=== PATIENT | female | born 1980 | race Two or more races ===

== ENCOUNTER 2024-11-10 11:36 | Emergency (ER) | payer MEDICAID, SELFPAY ==
[2024-11-10 12:18] VITALS: BP 149/93; PULSE 80; RESP 18; TEMP 36.7; O2SAT 96; BMI 37.0
--- NOTE | 2024-11-10 12:25 | XR_ITS ---
Examination: PA lateral chest 2 views TECHNIQUE: Upright PA lateral chest 2 views Exam date and time: November 10, 2024 at 12:51 PM INDICATIONS: Chest pain beginning 3 days ago. FINDINGS: Normal heart size. Lungs are clear. Osseous structures are intact. IMPRESSION: No active disease
--- NOTE | 2024-11-10 12:25 | EKG_ITS ---
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
--- NOTE | 2024-11-10 12:25 | PD.EDRME ---
Rapid Medical Screening Exam RME Arrival date/time: 11/10/24 11:36 44-year-old female presents the emergency department with complaints of shortness of breath/chest pain for 1 week. I have greeted and performed a focused initial assessment of this patient. Initial appropriate labs ordered at this time. A comprehensive ED assessment and evaluation of the patient and analysis of all test and completion of medical decision making process will be conducted by additional ED provider. Chief Complaint: Shortness of Breath/Dyspnea Time Seen by Provider: 11/10/24 11:59 Vital signs: Vital Signs Temperature 98.1 F 11/10/24 12:18 Pulse Rate 80 11/10/24 12:18 Respiratory Rate 18 11/10/24 12:18 Blood Pressure 149/93 H 11/10/24 12:18 Pulse Oximetry (%) 96 11/10/24 12:18 Oxygen Delivery Method Room Air 11/10/24 12:18
[2024-11-10 13:04] LABS: Basophils # (Auto) 0.1 Thou/mm3 (0.0-0.2); Basophils % (Auto) 1 % (0-2.5); Eosinophils # (Auto) 0.4 Thou/mm3 (0.0-0.5); Eosinophils % (Auto) 3 % (0-10); Hematocrit 39.3 % (36.0-46.0); Hemoglobin 12.3 g/dL (12.0-16.0); Immature Granulocytes % (Auto) 0 % (0-0); Immature Granulocytes Auto 0.02 Thou/mm3 (0.00-0.00); Lymphocytes # (Auto) 3.6 Thou/mm3 (1.0-4.8); Lymphocytes % (Auto) 31 % (10-50); Mean Corpuscular HGB Conc 31.3 g/dl (31.0-37.0); Mean Corpuscular Hemoglobin 25.8 pg (25.0-35.0); Mean Corpuscular Volume 83 fL (80-100); Monocytes # (Auto) 0.7 Thou/mm3 (0.0-0.8); Monocytes % (Auto) 6 % (0-12); Neutrophils % (Auto) 59 % (37-80); Nucleated Red Blood Cell % 0 /100 WBC (0); Platelet Count 337 Thou/mm3 (140-440); RDW Standard Deviation 46.3 fL (36.4-46.3); Red Blood Count 4.76 Miln/mm3 (4.00-5.20); White Blood Count 11.8 Thou/mm3 (3.6-11.0)
[2024-11-10 13:17] LABS: INR 0.9 (0.9-1.3); Prothrombin Time 10.3 Seconds (9.0-12.2)
[2024-11-10 13:21] LABS: B-Type Natriuretic Peptide 50 pg/mL (0-100)
[2024-11-10] MEDS: predniSONE 20 MG TABLET 60 MG PO (13:30)
[2024-11-10] MEDS: ALBUTEROL/IPRATROPIUM (Duoneb) RT SOL 3 ML NEBU INH (13:36)
[2024-11-10 13:38] VITALS: PULSE 92; RESP 20; O2SAT 100
[2024-11-10 14:12] LABS: Alanine Aminotransferase 32 U/L (10-49); Albumin, Serum 3.9 gm/dL (3.5-5.0); Albumin/Globulin Ratio 1.3 (1.2-2.2); Alkaline Phosphatase 107 U/L (46-116); Anion Gap 9 (7-16); Aspartate Amino Transferase 27 U/L (0-34); BUN/Creatinine Ratio 19 Ratio (12-20); Bilirubin,Total 0.4 mg/dL (0.3-1.2); Blood Urea Nitrogen 13 mg/dL (9-23); Calcium 9.3 mg/dL (8.3-10.6); Calcium (Corrected) 9.4 mg/dL (8.5-10.1); Carbon Dioxide 26.9 mMol/L (20.0-31.0); Chloride 104 mMol/L (98-107); Creatinine (Component) 0.7 mg/dL (0.6-1.3); Estimated Creatinine Clearance 112.3 mL/min (>60); Globulin 2.9 gm/dL (2.3-3.5); Glucose 94 mg/dL (74-106); Lipase 46 U/L (12-53); Osmolality,Calculated 279 (275-295); Potassium 3.7 mMol/L (3.4-5.1); Sodium 140 mMol/L (136-145); Total Protein 6.8 gm/dL (5.7-8.2); Troponin I < 0.002 ng/mL (0.0-0.045); eGFR > 60 See Note
--- NOTE | 2024-11-10 15:29 | PD.EDSOB ---
ED SOB =RME/HPI General Chief Complaint: Shortness of Breath/Dyspnea Stated Complaint: SEEN PCP X 3 DAYS AGO FOR RESPIRATORY INFECTION Time Seen by Provider: 11/10/24 11:59 Source: patient Arrival date/time: 11/10/24 11:36 44-year-old female presents to the emergency department with complaints of shortness of breath, cough recently diagnosed with URI. Patient reports she was on a [employer] mild wheezing. Mode of arrival: ambulatory Limitations: no limitations RME / HPI RME / HPI Narrative: 11/10/24 11:36 44-year-old female presents the emergency department with complaints of shortness of breath/chest pain for 1 week. I have greeted and performed a focused initial assessment of this patient. Initial appropriate labs ordered at this time. A comprehensive ED assessment and evaluation of the patient and analysis of all test and completion of medical decision making process will be conducted by additional ED provider. Related Data Home Medications ?Medication ?Instructions ?Recorded ?Confirmed promethazine-DM 6.25 mg-15 mg/5 mL 10 ml PO PRN PRN Cough 04/17/21 04/17/21 oral syrup Previous Rx's ?Medication ?Instructions ?Recorded albuterol sulfate 90 mcg/actuation 2 puff INH Q4H PRN Shortness Of 04/22/21 aerosol inhaler (Ventolin HFA) Breath #6.7 grams dexamethasone 6 mg tablet 6 mg PO QDAY #6 tabs 04/22/21 albuterol sulfate 90 mcg/actuation 2 puff inhalation Q6H PRN 11/10/24 aerosol inhaler (Ventolin HFA) shortness of breath or wheezing #8.5 grams Allergies Allergy/AdvReac Type Severity Reaction Status Date / Time Penicillins Allergy Intermediate Rash Verified 04/17/21 03:34 Review of Systems Review of Systems Systems Reviewed: All systems reviewed, normal except as documented Narrative Review of Systems: Gen: No fever, no chills, no weight loss EYES: No discharge, no visual changes, no pain HEENT: No ear pain, no congestion, no sore throat PULM: \+ shortness of breath, no cough, no congestion CV: No chest pain, no dyspnea on exertion, no palpitations GI: No nausea, no vomiting, no diarrhea, no pain, no constipation : No frequency, no urgency,? no dysuria Musc/skel: No joint pain, no back pain Skin: No rash? \ ED Exam General Limitations: Present no limitations General appearance: Present alert and in no apparent distress Head Head exam: Present atraumatic Eye Eye exam: Present normal appearance, PERRL and EOMI ENT ENT exam: Present normal exam, normal oropharynx and mucous membranes moist Neck Neck exam: Present normal inspection, full ROM and trachea midline Chest Chest inspection: Present normal inspection and symmetric chest wall rise Respiratory Respiratory exam: Present wheezes Cardiovascular Cardiovascular exam: Present regular rate, normal rhythm and normal heart sounds Abdominal Exam Abdominal exam: Present soft and normal bowel sounds Extremities Exam Extremities exam: Present normal inspection and full ROM Back Exam Back exam: Present normal inspection and full ROM Neurological Exam Neurological exam: Present alert, oriented X3 and CN II-XII intact Psychiatric Psychiatric exam: Present normal affect and normal mood Skin Skin exam: Present warm, dry, intact and normal color Course Quality Measures none Orders Category Date Time Status Bedside Influenza A&B Antigen Test NOW Care 11/10/24 15:06 Completed EKG (ED ONLY) *Do not use* NOW Care 11/10/24 12:25 Completed EKG (ED Only) Stat Exams 11/10/24 12:25 Draft XR chest 2V Stat Exams 11/10/24 12:25 Completed B-Type Natriuretic Peptide Stat Lab 11/10/24 12:52 Completed CBC Stat Lab 11/10/24 12:52 Completed Comprehensive Metabolic Panel Stat Lab 11/10/24 12:52 Completed Lipase Stat Lab 11/10/24 12:52 Completed Prothrombin Time with INR Stat Lab 11/10/24 12:52 Completed Troponin I Stat Lab 11/10/24 12:52 Completed Albuterol/Ipratr Rt Dona [Duoneb Rt Dona] Med 11/10/24 12:31 Discontinued 3 ml INH X1 ONE predniSONE Med 11/10/24 12:31 Discontinued 60 mg PO X1 ONE Vital Signs Vital signs: Vital Signs Temperature 98.1 F 11/10/24 12:18 Pulse Rate 80 11/10/24 12:18 Respiratory Rate 18 11/10/24 12:18 Blood Pressure 149/93 H 11/10/24 12:18 Pulse Oximetry (%) 96 11/10/24 12:18 Oxygen Delivery Method Room Air 11/10/24 12:18 Shortness of Breath / Dyspnea MDM Narrative MDM Narrative:: 44-year-old female presents emergency department complaints of shortness of breath, wheezing recent URI. Patient received breathing treatment prednisone relieving her symptoms. Chest x-ray did not demonstrate any acute pneumonia, or infiltrates. I will DC patient to follow-up with her PCP with a burst of steroids, breathing treatments strict ER precautions to return if there is any worsening symptoms change in condition. Patient data External records reviewed:: [facility] previous records Clinical information provided by:: patient Social determinants that could affect healthcare access:: none Patient has the following chronic illnesses:: no How is presenting disease/condition affected by chronic disease/condition?: no chronic disease Evaluation data The following diagnostics were reviewed and interpreted by me:: radiology exam(s) Lab and/or radiology exams considered but not ordered:: no Interpretation Summary: cc: Darshan Nunez MD; Jonathan ([facility])Teresa~ Examination: PA lateral chest 2 views TECHNIQUE: Upright PA lateral chest 2 views Exam date and time: November 10, 2024 at 12:51 PM INDICATIONS: Chest pain beginning 3 days ago. FINDINGS: Normal heart size. Lungs are clear. Osseous structures are intact. IMPRESSION: No active disease Medications / Prescriptions Medications or Prescriptions considered but not ordered:: no Medication administrations:: Medication Administration History Discontinued Medications Albuterol/Ipratropium (Albuterol/Ipratropium (Duoneb) Rt Dona 3 Ml Nebu) 3 ml INH X1 ONE Stop: 11/10/24 12:32 Last Admin: 11/10/24 13:36 Dose: 3 ml Documented By: BJ Prednisone (Prednisone 20 Mg Tablet) 60 mg PO X1 ONE Stop: 11/10/24 12:32 Last Admin: 11/10/24 13:30 Dose: 60 mg Documented By: All medications administered and effective Consultations Consultation(s) initiated? (list below): No Diagnosis Shortness of Breath Differential Diagnosis: acute exacerbation of chronic obstructive airways disease, community acquired pneumonia and asthma with exacerbation Most likely diagnosis given after review of the tests above:: Asthma exacerbation Admission Indicated Admission indicated?: not indicated Admission Request Was there a request for admission?: No Disposition Plan Disposition Plan: Discharge Discharge Attestation Discharge Attestation: The patient and all family members were given an opportunity to ask questions and understood the discharge instructions. Discharge instructions specifically effects, indications for sooner follow up or return to the emergency department, and the expected course of current diagnosis. Patient condition: Stable Discharge Plan Plan Patient Disposition: HOME (Self Care) Patient condition on transfer: Stable Prescriptions/Referrals Prescriptions/Med Rec: New albuterol sulfate [Ventolin HFA] 90 mcg/actuation HFA aerosol inhaler 2 puff inhalation Q6H PRN (Reason: shortness of breath or wheezing) Qty: 8.5 0RF No Action promethazine-DM 6.25-15 mg/5 mL syrup 10 ml PO PRN PRN (Reason: Cough) albuterol sulfate [Ventolin HFA] 90 mcg/actuation Hfa Aerosol Inhaler 2 puff INH Q4H PRN (Reason: Shortness Of Breath) Qty: 6.7 0RF dexamethasone 6 mg Tablet 6 mg PO QDAY Qty: 6 0RF Rx Instructions: Start 04/23 Problem List Clinical Impression: Mild reactive airways disease Patient/Caregiver Discharge Instructions Discharge Activity: activity as tolerated Education Materials: ED Inhaler Use, What Is Asthma Additional Instructions: Please follow-up with your primary doctor clinic in 48 hours. I did give you 3 days worth of steroids. Continue use inhaler as directed for shortness of breath. Return to the emergency department this any worsening symptoms change in condition. Print Language: Haitian Stand Alone Forms: Noemi Award Info., Work/School Release, Patient Portal Info Letter SOO/JELLY Supervising Physician SOO/JELLY Supervising Physician: Dr. Horton
== END 2024-11-10 16:25 | disposition home or self-care (01) ==
LOC: SERX 16:34
PROVIDERS: Nurse Practitioner Primary Care; Emergency Provider Emergency Medicine
DX: J45.909 Unspecified asthma, uncomplicated (principal); I49.8 Other specified cardiac arrhythmias; R07.9 Chest pain, unspecified
CPT/HCPCS: 36415; 71046; 80053; 83690; 83880; 84484; 85025; 85610; 93005; 94640; 99283; A9270; J7512

== ENCOUNTER 2024-11-20 20:05 | Emergency (ER) | payer MEDICAID, SELFPAY ==
[2024-11-20 20:07] VITALS: BMI 37.0
[2024-11-20 22:04] VITALS: BP 131/85; PULSE 95; RESP 18; TEMP 37; O2SAT 95
--- NOTE | 2024-11-20 22:14 | XR_ITS ---
Examination: PA lateral chest 2 views Technique: Upright PA lateral chest 2 views Exam date and time: November 20, 2024 10:31 PM Indications: Chest pain today Findings: Normal heart size Lungs are clear The osseous structures are intact Impression: No active disease
--- NOTE | 2024-11-20 22:14 | EKG_ITS ---
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
--- NOTE | 2024-11-20 22:14 | PD.EDCHEST ---
ED Chest Pain RME/HPI General Chief Complaint: Shortness of Breath/Dyspnea Stated Complaint: SOB AND LUNG PAIN, CHEST PAIN Time Seen by Provider: 11/20/24 22:05 Arrival date/time: 11/20/24 20:05 RME / HPI RME / HPI narrative: Substernal chest pain with radiation to her back x 1 day. Intermittent shortness of breath and wheezing. Last use albuterol inhaler at 2100. Ibuprofen 2100. Denies known sick contacts. Endorses nausea with vomiting. On course of steroids x 5 days. Related Data Home Medications ?Medication ?Instructions ?Recorded ?Confirmed promethazine-DM 6.25 mg-15 mg/5 mL 10 ml PO PRN PRN Cough 04/17/21 04/17/21 oral syrup Previous Rx's ?Medication ?Instructions ?Recorded albuterol sulfate 90 mcg/actuation 2 puff INH Q4H PRN Shortness Of 04/22/21 aerosol inhaler (Ventolin HFA) Breath #6.7 grams dexamethasone 6 mg tablet 6 mg PO QDAY #6 tabs 04/22/21 albuterol sulfate 90 mcg/actuation 2 puff inhalation Q6H PRN 11/10/24 aerosol inhaler (Ventolin HFA) shortness of breath or wheezing #8.5 grams albuterol sulfate 90 mcg/actuation 2 puff inhalation Q6H PRN 11/21/24 aerosol inhaler (Ventolin HFA) shortness of breath or wheezing #6.7 grams ondansetron 4 mg disintegrating 4 mg PO Q8H PRN nausea and 11/21/24 tablet vomiting #14 tabs Allergies Allergy/AdvReac Type Severity Reaction Status Date / Time No Known Allergies Allergy Verified 11/20/24 20:06 Course Orders Category Date Time Status Bedside COVID-19 Antigen Test NOW Care 11/20/24 22:15 Active Bedside Influenza A&B Antigen Test NOW Care 11/20/24 22:15 Completed EKG (ED ONLY) *Do not use* NOW Care 11/20/24 22:14 Completed EKG (ED Only) Stat Exams 11/20/24 22:14 Draft XR chest 2V Stat Exams 11/20/24 22:14 Completed B-Type Natriuretic Peptide Stat Lab 11/20/24 22:29 Completed CBC Stat Lab 11/20/24 22:29 Completed Comprehensive Metabolic Panel Stat Lab 11/20/24 22:29 Completed Drug Screen,Urine Stat Lab 11/20/24 22:28 Completed HCG Qualitative,Urine Stat Lab 11/20/24 22:28 Completed Magnesium Stat Lab 11/20/24 22:29 Completed Partial Thromboplastin Time Stat Lab 11/20/24 22:29 Completed Prothrombin Time with INR Stat Lab 11/20/24 22:29 Completed Troponin I Stat Lab 11/20/24 22:29 Completed Urinalysis Stat Lab 11/20/24 22:28 Completed HYDROcodone*/APAP 5/325 [[place] 5/325] Med 11/20/24 22:14 Discontinued 1 tab PO X1 ONE Ondansetron Odt [Zofran Odt] Med 11/20/24 22:14 Discontinued 4 mg PO X1 ONE Vital Signs Vital signs: Vital Signs Temperature 98.6 F 11/20/24 22:04 Pulse Rate 95 11/20/24 22:04 Respiratory Rate 18 11/20/24 22:04 Blood Pressure 131/85 H 11/20/24 22:04 Pulse Oximetry (%) 95 11/20/24 22:04 Oxygen Delivery Method Room Air 11/20/24 22:04 Chest Pain MDM Narrative MDM Narrative:: PERC 0 Medications / Prescriptions Medication administrations:: Medication Administration History Discontinued Medications Hydrocodone Bitart/Acetaminophen (Hydrocodone/Apap 5/325 Tablet) 1 tab PO X1 ONE Stop: 11/20/24 22:15 Last Admin: 11/20/24 23:35 Dose: 1 tab Documented By: SANDIE Ondansetron HCl (Ondansetron Odt 4 Mg Tabrap) 4 mg PO X1 ONE; Protocol Stop: 11/20/24 22:15 Last Admin: 11/20/24 23:36 Dose: 4 mg Documented By: SANDIE Discharge Plan Plan Patient Disposition: HOME (Self Care) Disposition Comment: stable Prescriptions/Referrals Prescriptions/Med Rec: New ondansetron 4 mg tablet,disintegrating 4 mg PO Q8H PRN (Reason: nausea and vomiting) Qty: 14 0RF albuterol sulfate [Ventolin HFA] 90 mcg/actuation HFA aerosol inhaler 2 puff inhalation Q6H PRN (Reason: shortness of breath or wheezing) Qty: 6.7 0RF No Action promethazine-DM 6.25-15 mg/5 mL syrup 10 ml PO PRN PRN (Reason: Cough) albuterol sulfate [Ventolin HFA] 90 mcg/actuation Hfa Aerosol Inhaler 2 puff INH Q4H PRN (Reason: Shortness Of Breath) Qty: 6.7 0RF dexamethasone 6 mg Tablet 6 mg PO QDAY Qty: 6 0RF Rx Instructions: Start /8 albuterol sulfate [Ventolin HFA] 90 mcg/actuation HFA aerosol inhaler 2 puff inhalation Q6H PRN (Reason: shortness of breath or wheezing) Qty: 8.5 0RF Referrals: No Primary/Family,Physician [Primary Care Provider] - In 1 week Problem List Clinical Impression: Chest pain, Nausea, Dyspnea Impression comment: Follow-up with primary care in the next 2 to 3 days for further evaluation and treatment. Use albuterol inhaler as needed for wheezing. Use Zofran as needed for nausea. Take Tylenol or ibuprofen as needed for chest wall discomfort. Return to the ED if your symptoms worsen or change. Patient/Caregiver Discharge Instructions Other Activity Instructions:: Follow-up with primary care in the next 2 to 3 days for further evaluation and treatment. Use albuterol inhaler as needed for wheezing. Use Zofran as needed for nausea. Take Tylenol or ibuprofen as needed for chest wall discomfort. Return to the ED if your symptoms worsen or change. Education Materials: ED Chest Pain, Uncertain Cause Print Language: Vietnamese Stand Alone Forms: Noemi Award Info., Patient Portal Info Letter PA/JELLY Supervising Physician PA/JELLY Supervising Physician: Dr. Landis
[2024-11-20 22:39] LABS: Collection Type, Urine Clean Catch
[2024-11-20 22:44] LABS: Basophils # (Auto) 0.1 Thou/mm3 (0.0-0.2); Basophils % (Auto) 0 % (0-2.5); Eosinophils # (Auto) 0.3 Thou/mm3 (0.0-0.5); Eosinophils % (Auto) 1 % (0-10); Hemoglobin 13.8 g/dL (12.0-16.0); Immature Granulocytes % (Auto) 0 % (0-0); Immature Granulocytes Auto 0.09 Thou/mm3 (0.00-0.00); Lymphocytes # (Auto) 5.3 Thou/mm3 (1.0-4.8); Lymphocytes % (Auto) 26 % (10-50); Mean Corpuscular HGB Conc 31.4 g/dl (31.0-37.0); Mean Corpuscular Hemoglobin 25.6 pg (25.0-35.0); Mean Corpuscular Volume 82 fL (80-100); Monocytes # (Auto) 1.1 Thou/mm3 (0.0-0.8); Monocytes % (Auto) 5 % (0-12); Neutrophils # (Auto) 13.3 Thou/mm3 (1.8-7.7); Neutrophils % (Auto) 66 % (37-80); Nucleated Red Blood Cell % 0 /100 WBC (0); Platelet Count 398 Thou/mm3 (140-440); RDW Standard Deviation 44.9 fL (36.4-46.3); White Blood Count 20.2 Thou/mm3 (3.6-11.0)
[2024-11-20 22:53] LABS: Bacteria,Urine Rare; Bilirubin,Urine Negative (Negative); Blood,Urine Trace (Negative); Clarity,Urine Turbid (Clear/Hazy); Color,Urine Yellow (Lt Yel-Yel); Glucose, Urine Negative (Negative); Ketones,Urine Negative (Negative); Leukocyte Esterase,Urine Positive (Negative); Nitrite,Urine Negative (Negative); Protein,Urine 1+ (Neg - Trace); RBC,Urine 10 /hpf (0-3); Specific Gravity,Urine 1.038 (1.001-1.035); Squamous Epithelial Cell,Urine 35 /hpf (0-5); WBC,Urine 7 /hpf (0-5)
[2024-11-20 22:54] LABS: Amphetamine/Methamp Scrn,U Negative (Negative); Barbiturate Screen,Urine Negative (Negative); Benzodiazepines Screen,Urine Negative (Negative); Benzoylecgonine Screen, Ur Negative (Negative); Fentanyl Screen,Urine Negative (Negative); Opiate Screen,Urine Negative (Negative); THC Screen,Urine Negative (Negative)
[2024-11-20 22:55] LABS: HCG Qualitative,Urine Negative
[2024-11-20 23:01] LABS: B-Type Natriuretic Peptide < 20 pg/mL (0-100)
[2024-11-20 23:02] LABS: INR 0.9 (0.9-1.3); Partial Thromboplastin Time 23.4 Seconds (22.0-36.0); Prothrombin Time 10.3 Seconds (9.0-12.2)
[2024-11-20 23:03] LABS: Potassium 3.7 mMol/L (3.4-5.1); Sodium 136 mMol/L (136-145)
[2024-11-20 23:04] LABS: Alanine Aminotransferase 67 U/L (10-49); Albumin, Serum 4.2 gm/dL (3.5-5.0); Albumin/Globulin Ratio 1.4 (1.2-2.2); Alkaline Phosphatase 119 U/L (46-116); Anion Gap 8 (7-16); Aspartate Amino Transferase 29 U/L (0-34); BUN/Creatinine Ratio 19 Ratio (12-20); Bilirubin,Total 0.6 mg/dL (0.3-1.2); Blood Urea Nitrogen 17 mg/dL (9-23); Calcium 8.9 mg/dL (8.3-10.6); Calcium (Corrected) 8.9 mg/dL (8.5-10.1); Carbon Dioxide 27.6 mMol/L (20.0-31.0); Chloride 100 mMol/L (98-107); Creatinine (Component) 0.9 mg/dL (0.6-1.3); Estimated Creatinine Clearance 87.3 mL/min (>60); Glucose 125 mg/dL (74-106); Magnesium 2.2 mg/dL (1.6-2.6); Osmolality,Calculated 274 (275-295); Total Protein 7.2 gm/dL (5.7-8.2); Troponin I < 0.002 ng/mL (0.0-0.045); eGFR > 60 See Note
[2024-11-20] MEDS: HYDROcodone/APAP 5/325 TABLET 1 TAB PO (23:35)
[2024-11-20] MEDS: ONDANSETRON ODT 4 MG TABRAP PO (23:36)
[2024-11-21 01:07] VITALS: BP 111/80; PULSE 84; RESP 17; TEMP 36.7; O2SAT 96
[2024-11-21 03:10] VITALS: BP 121/82; PULSE 89; RESP 16; TEMP 36.9; O2SAT 98
[2024-11-21 04:16] LABS: Path Review Blood Smear Sent to Pathologist
== END 2024-11-21 03:19 | disposition home or self-care (01) ==
PROVIDERS: Physician Assistant; Emergency Provider Emergency Medicine
DX: R07.2 Precordial pain (principal); R11.2 Nausea with vomiting, unspecified; R06.00 Dyspnea, unspecified
CPT/HCPCS: 36415; 71046; 80053; 80307; 81001; 81025; 83735; 83880; 84484; 85025; 85610; 85730; 87400; 87811; 93005; 99283; Q0162; A9270